=== PATIENT | male | born 1960 | race Caucasian/White ===

== ENCOUNTER 2018-10-11 11:57 | Emergency (ER) | payer BC ==
--- NOTE | 2018-10-11 12:17 | EDM.PDOC ---
ED HPI GENERAL MEDICAL PROBLEM - General Chief Complaint: Skin Complaint Stated Complaint: SKIN COMPLAINT Time Seen by Provider: 10/11/18 12:11 Source of Information: Reports: Patient - History of Present Illness INITIAL COMMENTS - FREE TEXT/NARRATIVE: Patient is here for evaluation of a skin lesion to his right lower back. He states that he noticed this for about the past month, has been growing slowly. Patient reports it is pruritic but not painful. Patient has a history of melanoma very close to the area of this lesion. Patient lives currently in [place], here in [place] sending some time with his parents and does not have a PCP yet here. He states he will be here a while. Tried to get into the clinic but was unable to do this. Patient is overall healthy, no medications on a regular basis. Feeling well but concerned about a skin lesion. Right Middle Back Pain Score (Numeric/FACES): 0 - Related Data Allergies Allergy/AdvReac Type Severity Reaction Status Date / Time No Known Allergies Allergy Verified 10/11/18 12:16 Home Meds: Home Meds . [No Known Home Meds] 10/11/18 [History] ED ROS GENERAL - Review of Systems Review Of Systems: See Below Constitutional: Reports: No Symptoms HEENT: Reports: No Symptoms Respiratory: Reports: No Symptoms Cardiovascular: Reports: No Symptoms GI/Abdominal: Reports: No Symptoms Skin: Reports: Pruritis, Change in Color, Lesions, Other (Growing lesion to right lower back) ED EXAM, SKIN/RASH Exam: See Below Exam Limited By: No Limitations General Appearance: Alert, WD/WN, No Apparent Distress Respiratory/Chest: No Respiratory Distress, Lungs Clear, Normal Breath Sounds Cardiovascular: Regular Rate, Rhythm, No Murmur Skin: Warm, Dry, Intact, Other (Annular slightly pigmented brown lesion approximately 0.75 cm diameter to right lower back.) Course - Vital Signs Last Recorded V/S: Last Vital Signs Temp 97.3 F 10/11/18 12:14 Pulse 69 10/11/18 12:14 Resp 20 10/11/18 12:14 BP 119/92 H 10/11/18 12:14 Pulse Ox 97 10/11/18 12:14 - Re-Assessments/Exams Free Text/Narrative Re-Assessment/Exam: Lesion actually appears to be a seborrheic keratosis, however with a new lesion rapidly growing in the close proximity to his previous melanoma I recommend that he have a punch biopsy to this. Discussed with the patient that this cannot be done here in the emergency department, coordinated patient to have a punch biopsy in the clinic on Sunday. 10/11/18 20:26 Departure - Departure Time of Disposition: 12:35 Disposition: Home, Self-Care 01 Condition: Good Clinical Impression: Neoplasm of skin of lower back - Discharge Information Instructions: Skin Biopsy Referrals: Abelino Harrison PA [Emergency Provider] - Forms: ED Department Discharge Additional Instructions: Follow-up in the clinic for a biopsy of the skin lesion, you have been scheduled with Abelino Harrison PA-C Sunday10/14/2018. Arrive at 4pm.
== END 2018-10-11 12:50 | disposition home or self-care (01) ==
LOC: JD.ED 11:57
DX: C44.509 Unspecified malignant neoplasm of skin of other part of trunk (principal)
CPT/HCPCS: 99282

== ENCOUNTER 2022-01-04 12:37 | Emergency (ER) | payer SELFPAY | END 2022-01-04 13:42 | disposition home or self-care (01) | LOC: JD.ED 12:37 | DX: S81.851A Open bite, right lower leg, initial encounter (principal); W54.0XXA Bitten by dog, initial encounter | CPT/HCPCS: 99283 ==